=== PATIENT | male | born 1960 | race Caucasian/White ===

== ENCOUNTER 2021-08-31 11:23 | Emergency (ER) | payer BC ==
[2021-08-31] MEDS ORDERED: NA CHLORIDE 0.9% 1,000 ML ONE (12:47)
[2021-08-31] MEDS ORDERED: METHYLPREDNISOLONE 125 MG INJ ONE (12:47)
[2021-08-31] MEDS ORDERED: FAMOTIDINE 20 MG/2 ML VIAL IV ONE (12:47)
--- NOTE | 2021-08-31 13:46 | ER ---
Nurse's Notes [facility] Name: James Jimenes Age: 60 yrs Sex: Male : 1960 Arrival Date: 08/31/2021 Time: 11:24 Bed 6 Private MD: Diagnosis: Allergic urticaria Presentation: 08/31 11:28 Chief complaint: Spouse and/or significant other states: he took 2 benadryl at 11 today tw2 as well. Chief complaint: Patient states: i feel the left side of my lips and face is swelling. Spouse and/or significant other states: we had his 2nd covid shot on Wednesday. no meds are different or anything else is different. Wednesday evening he had hives on his belly and armpit area. took benadryl since Wednesday night. every 4-6 hours or else the hives come back. when he woke up this morning he was saying his tongue and lips were swollen. the hives has gone a way mostly on belly and armpit area but they are on the back of his neck now. Coronavirus screen: At this time, the client does not indicate any symptoms associated with coronavirus-19. Ebola Screen: Patient denies travel to an Ebola-affected area in the 21 days before illness onset. Onset: The symptoms/episode began/occurred this morning. Anaphylaxis evaluation, the patient reports or I have noted the following symptoms which indicate a significant risk of anaphylaxis: urticaria angioedema. Initial Sepsis Screen: Does the patient meet any 2 criteria? No. Patient's initial sepsis screen is negative. Does the patient have a suspected source of infection? No. Patient's initial sepsis screen is negative. Risk Assessment: Do you want to hurt yourself or someone else? Patient reports no desire to harm self or others. Onset of symptoms was August 31, 2021. 11:28 Method Of Arrival: Ambulatory tw2 11:28 Acuity: GAGAN 3 tw2 Triage Assessment: 11:34 General: Appears in no apparent distress. well groomed, Behavior is calm, cooperative, tw2 appropriate for age. Pain: Denies pain. EENT: Reports lip, tongue, and face swelling.. Respiratory: Airway is patent Respiratory effort is even, unlabored, Respiratory pattern is regular, symmetrical. Historical: - Allergies: 11:32 Sulfa (Sulfonamide Antibiotics); "burning with urination"; tw2 - Home Meds: 11:32 amlodipine 5 mg tab 1 tab once daily [Active]; losartan 100 mg oral tab 1 tab once tw2 daily [Active]; tamsulosin 0.4 mg oral cap 1 cap once daily [Active]; - PMHx: 11:32 Hypertensive disorder; BPH; Hypercholesterolemia; tw2 - PSHx: 11:32 hermia repair; tw2 - Immunization history:: Client reports receiving the 2nd dose of the Covid vaccine, Date received: August 29, 2021 [employer] . - Social history:: Smoking status: Patient denies any tobacco usage or history of. Screenin:45 Abuse screen: Denies threats or abuse. Nutritional screening: No deficits noted. tw2 Tuberculosis screening: No symptoms or risk factors identified. Fall Risk None identified. Assessment: 13:02 General: Appears in no apparent distress. comfortable, Behavior is calm, cooperative. vg1 Pain: Denies pain. Neuro: Level of Consciousness is awake, alert, obeys commands, Oriented to person, place, time, situation. Cardiovascular: Denies chest pain, shortness of breath, Patient's skin is warm and dry. Respiratory: Airway is patent Respiratory effort is even, unlabored, Respiratory pattern is regular, Breath sounds are clear bilaterally. Denies cough, shortness of breath. GI: No signs and/or symptoms were reported involving the gastrointestinal system. : No signs and/or symptoms were reported regarding the genitourinary system. EENT: Throat is clear. Derm: Skin is intact, is healthy with good turgor, Skin is pink, warm \\T\\ dry. Pt appears to have no rash at this time on ABD, back or ALEX arms. Musculoskeletal: Circulation, motion, and sensation intact. 14:46 Reassessment: Patient appears in no apparent distress at this time. Patient and/or jd3 family updated on plan of care and expected duration. Pain level reassessed. Patient is alert, oriented x 3, equal unlabored respirations, skin warm/dry/pink. reported understanding of discharge instructions, even and steady gait upon discharge. Patient states feeling better. Patient states symptoms have improved. Vital Signs: 11:28 BP 141 / 80; Pulse 86; Resp 16; Temp 98(TE); Pulse Ox 96% on R/A; tw2 13:05 BP 128 / 82; Pulse 83; Resp 18; Pulse Ox 98% ; vg1 ED Course: 11:24 Patient arrived in ED. ds1 11:31 Triage completed. tw2 11:34 Arm band placed on. tw2 11:35 Magda Temple [facility]C [facility]. kb 11:35 Anderson Copeland MD is Attending Physician. kb 11:36 Bed in low position. Call light in reach. Adult w/ patient. tw2 11:50 Inserted saline lock: 20 gauge in right antecubital area, using aseptic technique. kj1 Accessed. 12:29 Nan Johnson, RN is Primary Nurse. vg1 14:46 No provider procedures requiring assistance completed. IV discontinued, intact, jd3 bleeding controlled, No redness/swelling at site. Pressure dressing applied. Administered Medications: 13:01 Drug: NS 0.9% 1000 ml {Note: administered by Jomar KAUFMAN.} Route: IV; Rate: 1000 ml; vg1 Site: right antecubital; 14:00 Follow up: Response: No adverse reaction; IV Status: Completed infusion; IV Intake: jd3 1000ml 13:02 Drug: SOLU-Medrol (methylPrednisoLONE) 125 mg {Note: Adminsitered by Jomar RN.} Route: vg1 IVP; Site: right antecubital; 14:00 Follow up: Response: No adverse reaction jd3 13:02 Drug: Pepcid (famotidine) 20 mg {Note: administered by Jomar RN.} Route: IVP; Site: vg1 right antecubital; 14:00 Follow up: Response: No adverse reaction jd3 Intake: 14:00 IV: 1000ml; Total: 1000ml. jd3 Outcome: 13:45 Discharge ordered by . kb 14:46 Discharged to home ambulatory, with family. jd3 14:46 Condition: stable 14:46 Discharge instructions given to patient, family, Instructed on discharge instructions, follow up and referral plans. medication usage, Demonstrated understanding of instructions, follow-up care, medications, Prescriptions given X 2. 14:47 Patient left the ED. jl7 Signatures: Magda Temple FNP-C FNP-Kaylynn Hughes ds1 Gabriela Farias RN RN tw2 Jomar Staples RN RN jl7 Paxton Orellana RN RN jd3 Raeann Temple kj1 Nan Johnson RN RN vg1 Corrections: (The following items were deleted from the chart) 11:46 11:28 Chief complaint: Patient states: i feel the left side of my lips and face is tw2 swelling. Spouse and/or significant other states: we had his 2nd covid shot on Wednesday. no meds are different. Wednesday evening he had hives on his belly and armpit area. took benadryl since Wednesday night. every 4-6 hours or else the hives come back. when he woke up this morning he was saying his tongue and lips were swollen. the hives has gone a way. tw2
--- NOTE | 2021-08-31 13:46 | EDPHYS ---
Physician Documentation [facility] [place], [place] Name: James Jimenes Age: 60 yrs Sex: Male : 1960 Arrival Date: 08/31/2021 Time: 11:24 Bed 6 Private MD: ED Physician Anderson Copeland HPI: 08/31 13:47 This 60 yrs old Male presents to ER via Ambulatory with complaints of kb Allergic Reaction. 13:47 The patient presents with rash, swelling of the lips, swelling of the tongue. Onset: kb The symptoms/episode began/occurred 3 day(s) ago. Associated signs and symptoms: Pertinent positives: hives, swelling. Possible causes: possibly covid shot. At home the patient or guardian has treated the symptoms with Benadryl. Severity of symptoms: At their worst the symptoms were moderate in the emergency department the symptoms have improved. The patient has not experienced similar symptoms in the past. The patient has not recently seen a physician. Historical: - Allergies: 11:32 Sulfa (Sulfonamide Antibiotics); "burning with urination"; tw2 - Home Meds: 11:32 amlodipine 5 mg tab 1 tab once daily [Active]; losartan 100 mg oral tab 1 tab once tw2 daily [Active]; tamsulosin 0.4 mg oral cap 1 cap once daily [Active]; - PMHx: 11:32 Hypertensive disorder; BPH; Hypercholesterolemia; tw2 - PSHx: 11:32 hermia repair; tw2 - Immunization history:: Client reports receiving the 2nd dose of the Covid vaccine, Date received: August 29, 2021 [employer] . - Social history:: Smoking status: Patient denies any tobacco usage or history of. ROS: 13:46 Constitutional: Negative for fever, chills, and weight loss. kb 13:46 ENT: Positive for swelling to lips and tongue. 13:46 Skin: Positive for rash, of the back, chest and abdomen. 13:46 All other systems are negative. Exam: 13:46 Constitutional: This is a well developed, well nourished patient who is awake, alert, kb and in no acute distress. Head/Face: Normocephalic, atraumatic. ENT: Moist Mucous membranes Cardiovascular: Regular rate and rhythm with a normal S1 and S2. No gallops, murmurs, or rubs. No pulse deficits. Respiratory: Respirations even and unlabored. No increased work of breathing, no retractions or nasal flaring. MS/ Extremity: Pulses equal, no cyanosis. Neurovascular intact. Full, normal range of motion. Neuro: Awake and alert, GCS 15, oriented to person, place, time, and situation. Moves all extremities. Normal gait. Psych: Awake, alert, with orientation to person, place and time. Behavior, mood, and affect are within normal limits. 13:46 Skin: rash a moderate rash is noted, consistent with urticaria, on the abdomen and chest and back. Vital Signs: 11:28 BP 141 / 80; Pulse 86; Resp 16; Temp 98(TE); Pulse Ox 96% on R/A; tw2 13:05 BP 128 / 82; Pulse 83; Resp 18; Pulse Ox 98% ; vg1 MDM: 11:36 Patient medically screened. kb 13:45 Data reviewed: vital signs, nurses notes. Data interpreted: Pulse oximetry: on room air kb is 98 %. Interpretation: normal. Counseling: I had a detailed discussion with the patient and/or guardian regarding: the historical points, exam findings, and any diagnostic results supporting the discharge/admit diagnosis, the need for outpatient follow up, a family practitioner, to return to the emergency department if symptoms worsen or persist or if there are any questions or concerns that arise at home. Response to treatment: the patient's symptoms have resolved after treatment. 11 11:49 Order name: IV Start; Complete Time: 11:51 kb Administered Medications: 13:01 Drug: NS 0.9% 1000 ml {Note: administered by Jomar KAUFMAN.} Route: IV; Rate: 1000 ml; vg1 Site: right antecubital; 14:00 Follow up: Response: No adverse reaction; IV Status: Completed infusion; IV Intake: jd3 1000ml 13:02 Drug: SOLU-Medrol (methylPrednisoLONE) 125 mg {Note: Adminsitered by Jomar KAUFMAN.} Route: vg1 IVP; Site: right antecubital; 14:00 Follow up: Response: No adverse reaction jd3 13:02 Drug: Pepcid (famotidine) 20 mg {Note: administered by Jomar KAUFMAN.} Route: IVP; Site: vg1 right antecubital; 14:00 Follow up: Response: No adverse reaction jd3 Disposition Summary: 08/31/21 13:45 Discharge Ordered Location: Home kb Condition: Stable kb Diagnosis - Allergic urticaria kb Followup: kb - With: Emergency Department - When: As needed - Reason: Worsening of condition Followup: kb - With: Private Physician - When: 2 - 3 days - Reason: Recheck today's complaints, Continuance of care, Re-evaluation by your physician Discharge Instructions: - Discharge Summary Sheet kb - Hives, Smnh-to-Pccs kb Forms: - Medication Reconciliation Form kb - Thank You Letter kb - Antibiotic Education kb - Prescription Opioid Use kb Prescriptions: - Pepcid 20 mg Oral Tablet - take 1 tablet by ORAL route every 12 hours for 5 days; 10 tablet; Refills: 0, kb Product Selection Permitted - Prednisone 20 mg Oral Tablet - take 1 tablet by ORAL route once daily for 5 days; 5 tablet; Refills: 0, kb Product Selection Permitted Addendum: 09/02/2021 08:36 Co-signature as Attending Physician, Anderson Copeland MD I agree with the assessment and s p3 plan of care. Signatures: Magda Temple, RADIO INSTALLER-C RADIO INSTALLER-Ckb Gabriela Farias, RN RN tw2 Nan Johnson RN RN vg1 Andreson Copeland MD MD sp3 Paxton Orellana RN jd3
[2021-08-31 15:09] VITALS: TEMP 98
[2021-08-31 15:10] VITALS: BP 128/82; O2SAT 98
--- OUTSIDE RECORDS SUMMARY | 2021-09-06 15:05 | XMS REPORT | Continuity of Care Document ---
:1960 Author Organization [facility] t Address [address] [place] [address] Care Team Providers Name Role Phone Lenard NORWOOD, A Primary Care Physician Lenard NORWOOD, A Attending Clinician CANAS Attending Clinician Unavailable JORGE A Attending Clinician Unavailable Erin WEINBERG Attending Clinician Unavailable Doctor Unassigned, Name Attending Clinician Unavailable JESSICA Attending Clinician Unavailable Jaqui NORWOOD Attending Clinician Marry MONIQUE Attending Clinician JAQUI Attending Clinician Unavailable JESSICA Admitting Clinician Unavailable Payers Payer Name Policy Type Policy Number Effective Date Expiration Date S ource Problems Condition Condition Condition Status Onset Resolution Last Treating Co mments Source Name Details Category Date Date Treatment Clinician Date Epigastric Epigastric Disease Active U nivers pain pain 7- ity of 00:00: Medical Branch Medication Medication Disease Active U nivers refill refill 5- ity of 00:00: 00 Medical Branch Essential Essential Disease Active Uni vers hypertensi hypertensi 12-20 it y of [place], [place] [facility] Vitamin D Vitamin D Disease Active Overview: Univers deficiency deficiency 12-20 Formatt[place] ity of 00:00: g of this [place] 00 note Medical might be Branch different from the original. 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 Mixed Mixed Disease Active Univers hyperlipid hyperlipid 12-20 it y of emia emia 00:00: [place] 00 Medical Branch Allergic Allergic Disease Active Unive rs rhinitis rhinitis 12-20 ity of 00:00: Medical Branch Other Other Disease Active Univers abnormal abnormal 12-20 ity of glucose glucose 00:00: Medical Branch Allergies, Adverse Reactions, Alerts Allergy Allergy Status Severity Reaction(s) Onset Inactive Treating Comm ents Source Name Type Date Date Clinician NO KNOWN Drug Active Univers ALLERGIE Class ity of S [facility] Social History Social Habit Start Date Stop Date Quantity Comments Source Exposure to Not sure [facility] SARS-CoV-2 (event) Medica l Branch Alcohol intake 2020-03-19 2020-03-19 0 /d [facility] 00:00:00 00:00:00 Medical Branch Tobacco use and 2014-12-21 2014-12-21 Never used [facility] exposure 00:00:00 00:00:00 [facility] Sex Ass[birth year] [facility] 00:00:00 00:00:00 Medical Branch Smoking Status Start Date Stop Date Source Never smoker [facility] Medications Ordered Filled Start Stop Current Ordering Indication Dosage Frequency Signature Comments Components Source Medication Medication Date Date Medication? Clinician (SIG) Name Name ESOMEPRAZOL 2020-10 Yes [id number] TAKE 1 Univers E 40 mg 0-08 CAPSULE BY ity of capsule 00:00: MOUTH 00 TWICE Medical DAILY Branch losartan Yes [id number] 100mg Take 1 Uni vers 100 mg 6-15 tablet by ity of tablet 00:00: mouth 00 daily. Medical Branch esomeprazol Yes [id number] 40mg Take 1 Univers e 40 mg 6-15 capsule by ity of capsule 00:00: mouth 2 (two) Medical times Branch daily. amLODIPine Yes [id number] 5mg Take 1 Un paulette 5 mg tablet 6-15 tablet by ity of 00:00: mouth 2 (two) Medical times Branch daily. losartan Yes [id number] 100mg Take 1 Uni vers 100 mg 6-15 tablet by ity of tablet 00:00: mouth 00 daily. Medical Branch esomeprazol Yes [id number] 40mg Take 1 Univers e 40 mg 6-15 capsule by ity of capsule 00:00: mouth (two) Medical times Branch daily. amLODIPine 0 Yes [id number] 5mg Take 1 Un pau[place] 5 mg tablet 6-15 tablet by ity of 00:00: mouth (two) Medical times Branch daily. losartan 0 Yes [id number] 100mg Take 1 Uni vers 100 mg 6-15 tablet by ity of tablet 00:00: mouth daily. Medical Branch esomeprazol Yes [id number] 40mg Take 1 Univers e 40 mg 6-15 capsule by ity of capsule 00:00: mouth (two) Medical times Branch daily. amLODIPine 0 Yes [id number] 5mg Take 1 Un pa[place] 5 mg tablet 6-15 tablet by ity of 00:00: mouth (two) Medical times Branch daily. losartan Yes [id number] 100mg Take 1 Uni vers 100 mg 6-15 tablet by ity of tablet 00:00: mouth daily. Medical Branch esomeprazol Yes [id number] 40mg Take 1 Univers e 40 mg 6-15 capsule by ity of capsule 00:00: mouth (two) Medical times Branch daily. amLODIPine 0 Yes [id number] 5mg Take 1 Un pa[place] 5 mg tablet 6-15 tablet by ity of 00:00: mouth (two) Medical times Branch daily. losartan 0 Yes [id number] 100mg Take 1 Uni vers 100 mg 6-15 tablet by ity of tablet 00:00: mouth daily. Medical Branch esomeprazol Yes [id number] 40mg Take 1 Univers e 40 mg 6-15 capsule by ity of capsule 00:00: mouth (two) Medical times Branch daily. amLODIPine 2020-0 Yes [id number] 5mg Take 1 Un [place] 5 mg tablet 6-15 tablet by ity of 00:00: mouth (two) Medical times Branch daily. losartan 0 Yes [id number] 100mg Take 1 Uni vers 100 mg 6-15 tablet by ity of tablet 00:00: mouth daily. Medical Branch esomeprazol 2020-0 Yes [id number] 40mg Take 1 Univers e 40 mg 6-15 capsule by ity of capsule 00:00: mouth (two) Medical times Branch daily. amLODIPine 0 Yes [id number] 5mg Take 1 Un pa[place] 5 mg tablet 6-15 tablet by ity of 00:00: mouth (two) Medical times Branch daily. losartan 0 Yes [id number] 100mg Take 1 Uni vers 100 mg 6-15 tablet by ity of tablet 00:00: mouth 00 daily. Medical Branch esomeprazol Yes [id number] 40mg Take 1 Univers e 40 mg 6-15 capsule by ity of capsule 00:00: mouth (two) Medical times Branch daily. amLODIPine Yes [id number] 5mg Take 1 Un [place] 5 mg tablet 6-15 tablet by ity of 00:00: mouth (two) Medical times Branch daily. losartan 0 Yes [id number] 100mg Take 1 Uni vers 100 mg 6-15 tablet by ity of tablet 00:00: mouth 00 daily. Medical Branch amLODIPine Yes [id number] 5mg Take 1 Un [place] 5 mg tablet 6-15 tablet by ity of 00:00: mouth (two) Medical times Branch daily. losartan 0 Yes [id number] 100mg Take 1 Uni vers 100 mg 6-15 tablet by ity of tablet 00:00: mouth 00 daily. Medical Branch esomeprazol Yes [id number] 40mg Take 1 Univers e 40 mg 6-15 capsule by ity of capsule 00:00: mouth (two) Medical times Branch daily. amLODIPine 0 Yes [id number] 5mg Take 1 Un [place] 5 mg tablet 6-15 tablet by ity of 00:00: mouth (two) Medical times Branch daily. losartan 0 Yes [id number] 100mg Take 1 Uni vers 100 mg 6-15 tablet by ity of tablet 00:00: mouth 00 daily. Medical Branch esomeprazol Yes [id number] 40mg Take 1 Univers e 40 mg 6-15 capsule by ity of capsule 00:00: mouth (two) Medical times Branch daily. amLODIPine 0 Yes [id number] 5mg Take 1 Un [place] 5 mg tablet 6-15 tablet by ity of 00:00: mouth 2 [place] 00 (two) Medical times Branch daily. esomeprazol 2020- No [id number] 40mg Take 1 Univers e 40 mg 6-15 10-08 capsule by ity o f capsule 00:00: 00:00 mouth 2 [place] 00 :00 (two) Medical times Branch daily. AMLODIPINE 0 Yes [id number] TAKE 1 Un pa[place] 5 mg tablet 5-03 TABLET BY ity of 00:00: MOUTH [place] 00 TWICE Medical DAILY Branch AMLODIPINE 0 Yes [id number] TAKE 1 Un [place] 5 mg tablet 5-03 TABLET BY ity of 00:00: MOUTH [place] 00 TWICE Medical DAILY Branch AMLODIPINE 2020-0 2020- No [id number] TAKE 1 U nivers 5 mg tablet 5-03 06-15 TABLET BY it y of 00:00: 00:00 MOUTH [place] 00 :00 TWICE Medical DAILY Branch AMLODIPINE 2020-0 2020- No [id number] TAKE 1 U nivers 5 mg tablet 5-03 06-15 TABLET BY it y of 00:00: 00:00 MOUTH [place] 00 :00 TWICE Medical DAILY Branch AMLODIPINE 2020-0 Yes [id number] TAKE 1 Un [place] 5 mg tablet 4-06 TABLET BY ity of 00:00: MOUTH [place] 00 TWICE Medical DAILY Branch AMLODIPINE 2020-0 2020- No [id number] TAKE 1 U nivers 5 mg tablet 4-06 05-03 TABLET BY it y of 00:00: 00:00 MOUTH [place] 00 :00 TWICE Medical DAILY Branch AMLODIPINE 2020-0 Yes [id number] TAKE 1 Un [place] 5 mg tablet 3-04 TABLET BY ity of 00:00: MOUTH [place] 00 TWICE Medical DAILY Branch AMLODIPINE 2020-0 2020- No [id number] TAKE 1 U nivers 5 mg tablet 3-04 04-06 TABLET BY it y of 00:00: 00:00 MOUTH [place] 00 :00 TWICE Medical DAILY Branch losartan 2019-0 Yes [id number] 100mg Take 1 Uni vers 100 mg 5-26 tablet by ity of tablet 00:00: mouth [place] 00 daily. Medical Branch losartan 2019-0 Yes [id number] 100mg Take 1 Uni vers 100 mg 5-26 tablet by ity of tablet 00:00: mouth [place] 00 daily. Medical Branch losartan 2020-0 Yes [id number] 100mg Take 1 Uni vers 100 mg 5-26 tablet by ity of tablet 00:00: mouth [place] 00 daily. Medical Branch losartan 2020-0 Yes [id number] 100mg Take 1 Uni vers 100 mg 5-26 tablet by ity of tablet 00:00: mouth [place] 00 daily. Medical Branch losartan 2020-0 Yes [id number] 100mg Take 1 Uni vers 100 mg 5-26 tablet by ity of tablet 00:00: mouth [place] 00 daily. Medical Branch losartan 2020-0 2020- No [id number] 100mg Take 1 Un [place] 100 mg 5-26 06-15 tablet by ity of tablet 00:00: 00:00 mouth [place] 00 :00 daily. Medical Branch losartan 2019-0 2020- No [id number] 100mg Take 1 Un [place] 100 mg 5-26 06-15 tablet by ity of tablet 00:00: 00:00 mouth [place] 00 :00 daily. Medical Branch AMLODIPINE 2020-0 Yes [id number] TAKE 1 Un [place] 5 mg tablet 3-15 TABLET BY ity of 00:00: MOUTH [place] 00 TWICE Medical DAILY Branch LOSARTAN 2020-0 Yes [id number] 100mg TAKE 1 Uni vers 100 mg 3-15 TABLET BY ity of tablet 00:00: MOUTH [place] 00 DAILY Medical Branch AMLODIPINE 2020-0 Yes [id number] TAKE 1 Un [place] 5 mg tablet 3-15 TABLET BY ity of 00:00: MOUTH [place] 00 TWICE Medical DAILY Branch LOSARTAN 2020-0 Yes [id number] 100mg TAKE 1 Uni vers 100 mg 3-15 TABLET BY ity of tablet 00:00: MOUTH [place] 00 DAILY Medical Branch AMLODIPINE 2020-0 Yes [id number] TAKE 1 Un [place] 5 mg tablet 3-15 TABLET BY ity of 00:00: MOUTH [place] 00 TWICE Medical DAILY Branch AMLODIPINE 2019-0 2020- No [id number] TAKE 1 U nivers 5 mg tablet 3-15 03-04 TABLET BY it y of 00:00: 00:00 MOUTH [place] 00 :00 TWICE Medical DAILY Branch LOSARTAN 2019-0 2019- No [id number] 100mg TAKE 1 Un [place] 100 mg 3-15 05-26 TABLET BY ity of tablet 00:00: 00:00 MOUTH [place] 00 :00 DAILY Medical Branch amLODIPine 2019-0 2019- No [id number] 5mg Take 1 U nivers 5 mg tablet 02-06-15 tablet by it y of 00:00: 00:00 mouth 2 [place] 00 :00 (two) Medical times Branch daily. losartan 2019- No [id number] 100mg Take 1 Un [place] 100 mg 4-15 -15 tablet by ity of tablet 00:00: 00:00 mouth [place] 00 :00 daily. Medical Branch Immunizations Ordered Filled Immunization Date Status Comments [facility] e Immunization Name Name TDAP 2018-01-07 Completed University of 00:00:00 [place] [facility] TDAP 2018-01-07 Completed University of 00:00:00 [place] [facility] TDAP 2018-01-07 Completed University of 00:00:00 [place] [facility] TDAP 2018-01-07 Completed University of 00:00:00 [place] [facility] TDAP 2018-01-07 Completed University of 00:00:00 [facility] TDAP 2018-01-07 Completed University of 00:00:00 [facility] Branch TDAP 2018-01-07 Completed University of 00:00:00 [place] [facility] TDAP 2018-01-07 Completed University of 00:00:00 [place] [facility] TDAP 2018-01-07 Completed University of 00:00:00 [place] [facility] Tdap 2018-01-07 Completed University of 00:00:00 [place] [facility] Tdap 2018-01-07 Completed University of 00:00:00 [place] [facility] Tdap 2018-01-07 Completed University of 00:00:00 [facility] Branch TDAP 2018-01-07 Completed University of 00:00:00 [place] [facility] TDAP 2018-01-07 Completed University of 00:00:00 [place] [facility] TDAP 2018-01-07 Completed University of 00:00:00 [place] [facility] TDAP 2018-01-07 Completed University of 00:00:00 [facility] Branch TDAP 2018-01-07 Completed University of 00:00:00 [facility] Vital Signs Vital Name Observation Time Observation Value Comments Source Systolic blood 2021-04-08 13:47:00 130 mm[Hg] Univer sity of pressure [facility] Diastolic blood 2021-04-08 13:47:00 84 mm[Hg] Unive rsity of pressure [facility] Heart rate 2021-04-08 13:47:00 94 /min [facility] Body temperature 2021-04-08 13:47:00 36.5 Doir [facility] Respiratory rate 2021-04-08 13:47:00 18 /min [facility] Body weight 2021-04-08 13:47:00 92.897 kg [facility] BMI 2021-04-08 13:47:00 31.14 kg/m2 [facility] Oxygen saturation in 2021-04-08 13:47:00 94 /min [facility] blood by [facility] Pulse oximetry Branch Procedures Procedure Date / Time Performed Performing Clinician Sourc e EXTERNAL PROVIDER 2021-05-22 05:01:00 Doctor Unassigned, No Univ [facility] RECORDS Name [facility] Encounters Start End Encounter Admission Attending Care Care Encounter Source Date/Time Date/Time Type Type Clinicians Facility Department ID 2021-08-01 2021-08-01 Christal Weinberg [facility] 1.2.840.[id number] [facility] 00:00:00 00:00:00 Jia Reid [id number] shahida [facility] [id number] Pawan Edmond [phone] [place] [address] Branch Building 2021-07-21 2021-07-21 Outpatient FLORESITA [facility] [id number] [place] 00:00:00 00:00:00 HINA 847 Method i 2021-07-21 2021-07-21 Outpatient JORGE A, EDITHAR [facility] [id number] [place] 00:00:00 00:00:00 186 Method i 2021-07-21 2021-07-21 Outpatient FLORESITA [facility] [id number] [place] 00:00:00 00:00:00 HINA 851 Method i 2021-06-05 2021-06-05 Outpatient Servando WEINBERG [facility] [id number] Univers 15:20:00 15:20:00 JIA [id number] shahida [facility] 2021-06-05 2021-06-05 Outpatient Servando WEINBERG [facility] [id number] Univers 15:20:00 15:20:00 JIA pinedo [facility] 2021-05-22 2021-05-22 Orders Doctor ANGIE 1.2.840.114 [id number] Univers 00:00:00 00:00:00 Only Unassigned, EMILY [id number] ity of [place] [facility] [id number] [place] as [phone] [address] 2021-04-26 2021-05-17 Inpatient JESSICA [facility] [id number] [place] 00:00:00 00:00:[address] 2021-05-15 2021-05-15 Telephone [facility] 1.2.840.[id number] [facility] 00:00:00 00:00:00 Jia Reid [id number] ity [id number] [phone] La dical nal 044 [facility] 2021-04-25 2021-04-25 Telephone [facility] 1.2.840.[id number] [facility] 00:00:00 00:00:00 Jia Reid [id number] ity [id number] [phone] La dical nal 044 [facility] 2021-04-21 2021-04-22 Telemedici [facility] 1.2.840.114 [id number] Univers 08:21:34 08:15:18 ne Visit Jia Reid [id number] ity [id number] [phone] La diclay nal 231 [facility] 2021-04-21 2021-04-21 Outpatient Servando WEINBERG [facility] [id number] Univers 15:20:00 15:20:00 JIA [id number] shahida [facility] 2021-04-21 2021-04-21 Outpatient R LENARD [facility] [id number] Univers 15:20:00 15:20:00 [facility]-04-08 2021-04-08 [facility] 1.2.840.114 [id number] Univers 08:36:03 10:43:17 Visit Jia [place] [id number] ity [id number] [phone] [address] 2021-04-08 2021-04-08 [facility] [id number] Univers 09:00:00 09:00:00 JIA [id number] ity [facility] 2021-04-08 2021-04-08 [facility] [id number] Univers 09:00:00 09:00:00 JIA [facility] 2021-03-26 2021-03-26 [facility] 1.2.840.114 [id number] Univers 00:00:00 00:00:00 Dave Reid [id number] i [id number] [phone] [facility] 044 [facility] 2021-02-24 2021-02-24 Refill [facility] 1.2.840.114 [id number] Univers 00:00:00 00:00:00 Ciera Reid [id number] ity [id number] [phone] La dical [address] 2021-01-25 2021-01-25 [facility] 1.2.840.114 [id number] Univers 00:00:00 00:00:00 Ciera Reid [id number] ity [id number] [phone] La dical [address] 2020-12-26 2020-12-26 [facility] 1.2.840.114 [id number] Univers 00:00:00 00:00:00 Jia [place] [id number] ity [id number] [phone] [facility] 231 [facility] 2020-06-19 2020-06-19 Outpatient R JAQUI, [facility] [id number] Univers 10:20:00 10:20:00 DAVE [id number] ity [facility] 2020-03-19 2020-03-19 [facility] [id number] Univers 09:00:00 09:00:00 DAVE [id number] ity [facility] 2020-03-19 2020-03-19 [facility] [id number] Univers 09:00:00 09:00:00 DAVE [facility] 2020-03-19 2020-03-19 Telemedici [facility] 1.2.840.114 [id number] Univers 07:25:11 07:45:11 ne Visit Dave [place] [id number] ity [id number] [phone] [facility] 044 [facility] 2020-03-03 2020-03-03 [facility] 1.2.840.114 [id number] Univers 00:00:00 00:00:00 Jia [place] [id number] it[id number] [phone] [facility] 231 [facility] 2020-02-08 2020-02-08 [facility] [id number] Univers 08:40:00 08:40:00 JIA ity [facility] 2020-01-04 2020-01-04 [facility] 1.2.840.114 [id number] Univers 00:00:00 00:00:00 Jia [place] [id number] ity [id number] [phone] [address] Results This patient has no known results.
== END 2021-08-31 14:47 | disposition home or self-care (01) ==
LOC: ER 11:23
DX: L50.0 Allergic urticaria (principal); I10 Essential (primary) hypertension; N40.0 Benign prostatic hyperplasia without lower urinary tract symptoms; Z88.2 Allergy status to sulfonamides
CPT/HCPCS: 96361; 96375; 96374; 99284; J7030; J2930